=== PATIENT | female | born 1975 | race African-American/Black ===

== ENCOUNTER 2019-07-10 23:11 | Observation (INO) ==
[2019-07-10 23:42] LABS: BASO# 0.04 X1000 (0.0-0.2); BASO% 0.3 % (0.0-0.8); EOS# 0.47 X1000 (0.0-0.7); EOS% 3.6 % (0.0-10.0); HEMATOCRIT 24.1 % (37.0-47.0); HEMOGLOBIN 6.1 g/dL (12.0-16.0); IMM GRAN# 0.11 X1000 (0.0-0.04); IMM GRAN% 0.8 % (0.0-0.5); LYMPH# 2.02 X1000 (1.2-3.4); LYMPH% 15.6 % (20.5-51.1); MCH 20.4 PG (27-31); MCHC 25.3 g/dL (33-37); MCV 80.6 FL (81-99); MONO# 0.76 X1000 (0.11-0.59); MONO% 5.9 % (1.7-9.3); MPV 9.7 FL (7.4-10.4); NEUT# 9.55 X1000 (1.4-6.5); NEUT% 73.8 % (42.2-75.2); PLT 439 X1000 (130-400); RBC 2.99 XMIL (4.2-5.4); RDW 22.6 % (11.5-14.5); WBC 12.95 X1000 (4.8-10.8)
[2019-07-10 23:55] LABS: AGAP 15; ALB/GLOB RATIO 1.2; ALBUMIN 4.1 g/dL (3.5-5.0); ALKALINE PHOSPHATASE 106 U/L (32-104); BUN 10 mg/dL (8-22); CALCIUM 8.8 mg/dL (8.8-10.2); CHLORIDE 102 mmol/L (98-107); COSMO 277; CREATININE 0.7 mg/dL (0.5-0.9); ESTIMATED GFR > 60; GLUCOSE 134 mg/dL (70-104); GOT 18 U/L (10-30); GPT 18 U/L (10-36); POTASSIUM 4.2 mmol/L (3.5-5.1); SODIUM 138 mmol/L (136-145); TCO2 21 mmol/L (25-35); TOTAL BILIRUBIN 0.24 mg/dL (0.20-1.00); TOTAL PROTEIN 7.6 g/dL (6.3-8.3)
[2019-07-11] MEDS ORDERED: BENADRYL PO ONE (00:29)
[2019-07-11] MEDS ORDERED: ATIVAN PO ONE (00:29)
[2019-07-11 00:52] LABS: FERRITIN 32 ng/mL (13-150)
--- NOTE | 2019-07-11 00:52 | PROVIDER DOCUMENTATION ---
This chart was entered by Susy Booth Scribe, acting as scribe for Анна Sneed MD. HPI-General Adult - General Chief Complaint: Weakness Stated Complaint: LOW IRON, WEAK Time Seen by Provider: 07/11/19 00:20 Source: patient Allergies/Adverse Reactions: Patient Allergies Allergy/AdvReac Type Severity Reaction Status Date / Time No Known Allergies Allergy Verified 07/11/19 00:04 Home Medications: Home Medication List Medication Instructions Recorded Confirmed Last Taken Type Iron Carbonyl/Vit C/Vit B12/FA 1 ea PO DAILY #30 tab 03/06/18 07/11/19 Unknown Rx [Icar-C Plus] - History of Present Illness -Gen Adult Nature of Presenting Problems: pt is a 43 yr old female presenting with weakness and nausea x 9 days. pt admits she has had vaginal bleeding x 20 days. pt has a hx of uterine fibroids causing heaving vaginal bleeding. She states that some months are heavy and others are f ine. She dneies any pain. She denies any rectal bleeding or hematemesis. pt denies any other complaints. pt does admit hx of transfusions due to same. She has been evaluated by [facility] in [place] who advised a hysterectomy. She has been holding off on hysterectomy because they recommendd a large incision and she didnt feel comfortable going through the surgery but now she knows she needs to have something done. Location of Pain/Injury: reports: generalized Quality of Pain: reports: none Severity: reports: moderate Onset/Duration: reports: other (9 days) Timing: reports: still present, getting worse Context/Activities at Onset: reports: rest Modifying Factors: improves with: rest (no improvement) Associated Symptoms: reports: dizziness, fatigue, nausea, weakness. denies: fever/chills, vomiting Similar Symptoms Previously?: Yes Recently seen or treated by another doctor?: No Review of Systems - Adult - REVIEW OF SYSTEMS - ADULT Constitutional: reports: fatique. denies: chills, fever Eyes: denies: blurred vision, double vision Ears, Nose, Mouth & Throat: denies: ear pain, sinus problem, throat pain Cardiovascular: denies: chest pain, palpitations, syncope Respiratory: denies: cough, shortness of breath Gastrointestinal: reports: nausea. denies: abdominal pain, diarrhea, vomiting Genitourinary: reports: other (vaginal bleeding x 20 days). denies: dysuria, frequency, flank pain Musculoskeletal: reports: no symptoms reported Integumentary: reports: no symptoms reported Neurological: reports: dizziness/vertigo. denies: headache/migraines, syncope Psychiatric: reports: no symptoms reported Endocrine: reports: no symptoms reported Hematologic/Lymphatic: reports: transfusions Allergic/Immunologic: reports: no symptoms reported All Other Systems: Reviewed and Negative Past History - Adult - PAST MEDICAL HISTORY-ADULT Review of Records: reports: Old Records Reviewed, Nursing Assessment Review, Medications Reviewed, Social history reviewed & non-contributory. Major Childhood Illnesses: reports: denies history Cardiovascular: reports: denies history Respiratory: reports: denies history Gastrointestinal: reports: denies history Obstetrical/Gynecological: reports: denies history Genitourinary: reports: denies history Musculoskeletal: reports: denies history Neurological: reports: denies history Endocrine/Immune: reports: denies history Other Conditions: reports: denies history - IMMUNIZATION STATUS Childhood Immunizations: See Nurse Assessment Flu Vaccine: See Nurse Assessment - FAMILY HISTORY Family History: reviewed, not pertinent - SOCIAL HISTORY Living Situation: family Physical Exam-General - PHYSICAL EXAM-ADULT Initial Vital Signs Reviewed: Yes - CONSTITUTIONAL General Appearance: alert, no apparent distress, obese, anxious - EYES Eyes: PERRL/EOMI, pale conjunctivae - HEAD, EARS, NOSE, MOUTH & THROAT HENMT: normocephalic/atraumatic - NECK Neck: non-tender, full range of motion, supple, normal inspection - RESPIRATORY Respiratory: lungs clear, normal breath sounds, no respiratory distress, no accessory muscle use - CARDIOVASCULAR Cardiovascular: normal peripheral pulses, tachycardia - GASTROINTESTINAL (ABDOMEN) Abdominal Exam: normal bowel sounds, non tender, soft - LYMPHATIC Lymphatic: no adenopathy - MUSCULOSKELETAL Back Exam: normal inspection Extremity: normal range of motion, non-tender, normal gait, normal inspection - SKIN Integumentary: normal turgor, warm/dry, pallor - NEUROLOGIC Neurologic: grossly normal, no motor/sensory deficits - PSYCHIATRIC Psych/Mental Status: oriented x 3, anxious, tearful Progress - PLAN OF CARE/RESULTS Progress/Plan/Lab Results: Vital Signs - 8 hr 07/10/19 23:12 Temperature 98.3 F Pulse Rate 132 H Respiratory Rate 16 Blood Pressure 146/83 O2 Sat by Pulse Oximetry 100 Laboratory Results - last 24 hr 07/10/19 07/10/19 07/10/19 23:29 23:29 23:29 WBC 12.95 H RBC 2.99 L Hgb 6.1 L Hct 24.1 L MCV 80.6 L MCH 20.4 L MCHC 25.3 L RDW Std Deviation 22.6 H Plt Count 439 H MPV 9.7 Immature Gran % (Auto) 0.8 H Neut % (Auto) 73.8 Lymph % (Auto) 15.6 L Becker % (Auto) 5.9 Eos % (Auto) 3.6 Baso % (Auto) 0.3 Immature Gran # (Auto) 0.11 H Neut # (Auto) 9.55 H Lymph # (Auto) 2.02 Becker # (Auto) 0.76 H Eos # (Auto) 0.47 Baso # (Auto) 0.04 Sodium 138 Potassium 4.2 Chloride 102 Carbon Dioxide 21 L Anion Gap 15 BUN 10 Creatinine 0.7 Estimated GFR/1.73 m2 > 60 BUN/Creatinine Ratio 14 Glucose 134 H Calculated Osmolality 277 Calcium 8.8 Iron Total Bilirubin 0.24 AST 18 ALT 18 Alkaline Phosphatase 106 H Total Protein 7.6 Albumin 4.1 Globulin 3.5 Albumin/Globulin Ratio 1.2 Blood Type B POSITIVE Antibody Screen NEGATIVE Crossmatch See Detail 07/10/19 23:29 WBC RBC Hgb Hct MCV MCH MCHC RDW Std Deviation Plt Count MPV Immature Gran % (Auto) Neut % (Auto) Lymph % (Auto) Becker % (Auto) Eos % (Auto) Baso % (Auto) Immature Gran # (Auto) Neut # (Auto) Lymph # (Auto) Becker # (Auto) Eos # (Auto) Baso # (Auto) Sodium Potassium Chloride Carbon Dioxide Anion Gap BUN Creatinine Estimated GFR/1.73 m2 BUN/Creatinine Ratio Glucose Calculated Osmolality Calcium Iron 281 H Total Bilirubin AST ALT Alkaline Phosphatase Total Protein Albumin Globulin Albumin/Globulin Ratio Blood Type Antibody Screen Crossmatch Orders Category Date Time Status Transfuse .Give-Transfuse Care 07/10/19 23:51 Active CBC WITH DIFF [HEME] Stat Lab 07/10/19 23:29 Completed CMP [COMPREHENSIVE METABOLIC PANEL] [CHEM] Stat Lab 07/10/19 23:29 Completed FERRITIN Stat Lab 07/10/19 23:29 Received LRPC (RED CELLS) [BBK] Stat Lab 07/10/19 23:29 Results TOTAL IRON [CHEM] Stat Lab 07/10/19 23:29 Completed TYPE & SCREEN [BBK] Stat Lab 07/10/19 23:29 Results VITAMIN B12 Stat Lab 07/10/19 23:29 Received Diphenhydramine [Benadryl] Med 07/11/19 00:29 Discontinued 50 mg PO NOW ONE Lorazepam [Ativan] Med 07/11/19 00:29 Discontinued 1 mg PO NOW ONE Patient with H/H low to 6.1 [address] Sp[address] Hackett who advised to offer admission to [facility]. Spoke to Dr Veronica precision agronomist for [facility] who accepted patient for admission. Stable for floor. Orders placed per his recommendation. Result Diagrams: 07/10/19 23:29 07/10/19 23:29 - CONSULTS/PCP/HOSPITALIST Notification #1 *Consult/PCP/Hospitalist*: Dr Hackett Time Discussed: 01:21 Consult Disposition: other (Offer admission to [facility]) #2 Consult: Dr Veronica Time Discussed: 01:27 Consult Disposition: Admit Departure - Departure Date of Disposition Decision: 07/11/19 Time of Disposition Decision: 01:28 DIAGNOSIS: Anemia, Uterine fibroid, Vaginal bleeding, Menorrhagia with irregular cycle Disposition: ADMITTED INPATIENT 09 Certified Medical Emergency: Emergent Condition: Stable Referrals and Follow-Ups: Marcela Fuentes MD [Primary Care Provider] - - Critical Care Note This patient required my direct & personal management of CC.: Yes Total Time (mins): 35 Critical Care Statement: This patient required my direct personal management to treat or rule out processes, the absence of which, could potentiallly result in sudden, clinically significant life or limb threatening deterioration. Attestation - Physician/ ALMAZ Attestation Patient care was provided by Advanced Practice Provider:: No The physician spent face to face time with patient:: Yes Advanced Practice Provider documentation review:: Supervising physician onsite and consulted in the evaluation and care of this patient. The physician did have a face to face encounter with the patient. This chart was documented by the indicated scribe, (Susy Booth Scribe) and accurately reflects the services I performed and decisions made by me, Анна Sneed MD, as attested by the provider's signature.
[2019-07-11] MEDS ORDERED: NS 1,000 ML IV ONE (01:30)
[2019-07-11] MEDS ORDERED: TYLENOL PO PRN (01:30)
[2019-07-11] MEDS ORDERED: NS 500 ML ONE (01:55)
[2019-07-11 11:18] VITALS: BP 121/73
--- NOTE | 2019-07-11 11:38 | Diag Imaging Result Doc PS360 ---
EXAM: US PELVIC NON-OB COMPLETE 07/11/2019 HISTORY: uterine fibroids, vaginal bleeding TECHNIQUE: Pelvic ultrasound transabdominal scan. COMMENT: The uterus is enlarged and heterogeneous in echotexture with apparent multiple myometrial masses. This measures 14.7 x 13.1 x 21 cm. There was a similar appearance on 03/03/2018. The endometrial stripe is not identifiable. Neither ovary is enlarged. There is a 4.5 cm left ovarian cyst. This was smaller at the time the previous study. There is no evidence of free fluid. IMPRESSION: Fibroid uterus. Left ovarian cyst. Electronically signed by Seymour Puri 07/11/2019 11:36 AM
--- NOTE | 2019-07-11 18:49 | HISTORY AND PHYSICAL ---
HISTORY OF PRESENT ILLNESS: The patient is a 43-year-old, 1, para 1, who presents to the emergency room with weakness, nausea, vaginal bleeding for the past 20 days. She has a history of fibroids from approximately 2 years ago, where she was advised to undergo hysterectomy. She continues to have bleeding and admission hemoglobin was 6.1. Vital signs are stable. She wishes to undergo evaluation and recommendation for her uterine fibroids. PREVIOUS MEDICAL HISTORY: Is negative. PREVIOUS SURGICAL HISTORY: Is negative. ALLERGIES TO MEDICINES: None. MEDICINES: Iron. OB HISTORY: One vaginal delivery. CRYPTOLOGIC SUPPORT SPECIALIST HISTORY: Normal Paps and fibroids as above. REVIEW OF SYSTEMS: Negative for chest pain, shortness of breath, headache, cough, runny nose, fever, sore throat. Positive for nausea and fatigue. PHYSICAL EXAM: GENERAL: This is a well-developed, well-nourished woman appearing her stated age. HEENT: Grossly normal. RESPIRATORY: Nonlabored breathing. HEART: Regular rate and rhythm. ABDOMEN: Soft, protuberant, and nontender throughout. There is a palpable uterine mass extending to 3 cm below the umbilicus, nodular and nonpainful. EXTREMITIES: Without clubbing, cyanosis, or edema. PELVIC EXAM: Is deferred. IMAGING: Ultrasound indicates a 15 cm x 21 cm uterus with no discernible endometrial stripe. Multiple heterogeneous enlarged fibroids. Ovaries were not visualized. There were bilaterally normal sized ovaries with one 4 cm simple cyst. No free fluid. ASSESSMENT: A 43-year-old , G1, P1, with uterine fibroids resulting in menorrhagia and iron-deficiency anemia. PLAN: She received 2 units packed red blood cells overnight and will receive 2 units of packed red blood cells and ultrasound as above. I will make recommendations for her on discharge.
--- NOTE | 2019-07-12 09:05 | DISCHARGE SUMMARY ---
ADMISSION DATE: 07/10/2019 DISCHARGE DATE: 07/11/2019 HOSPITAL COURSE: The patient was admitted the previous day with iron deficiency anemia secondary to uterine fibroids and menorrhagia. Her hemoglobin was 6.1. She was feeling weak and had some nausea. She completed 2 units of packed red blood cells and upon discharge, is feeling "tip-top." She had a full breakfast with no nausea. I reviewed her ultrasound with her and her anemia. This is her second time requiring blood transfusion, and reinforced the importance of proceeding with definitive management prior to needing blood again. I discussed the importance and dangers of being chronically anemic should she be in an MVA or have some other form of accident. Recommend attempting a TLH versus da Deni robot guided procedure to reduce her risk of an open midline incision. She is discharged home in stable condition, feeling much better. I left her prescription for Provera 20 mg daily and asked her to make sure she sees a agronomy supervisor as an outpatient to manage her menorrhagia and uterine fibroids.
== END 2019-07-11 14:24 | disposition home or self-care (01) ==
LOC: SUPCPDRO → 4N 23:11 → ED 23:11
PROVIDERS: ADMIT Obstetrics & Gynecology; ATTEND Obstetrics & Gynecology